=== PATIENT | female | born 1980 | race Two or more races ===

== ENCOUNTER 2019-07-18 14:36 | Inpatient (IN) | payer OTHER ==
[~2019-07-18] VITALS: Ht 167.6 cm; Wt 80.7 kg
[2019-07-18] MEDS ORDERED: PRENATAL TABLE1 EAC1 PO (20:10)
[2019-07-20] MEDS ORDERED: Anaprox DS PO (12:37)
== END 2019-07-20 13:37 | disposition home or self-care (01) | DRG 807 ==
LOC: LDR 14:36 → OB/GYN 14:36 → LDR 14:40 → OB/GYN 07-19 00:46
PROVIDERS: ADMIT Obstetrics & Gynecology
PROC: 10E0XZZ Delivery of Products of Conception, External Approach (ICD-10-PCS; principal; 2019-07-18)
PROC: 0KQM0ZZ Repair Perineum Muscle, Open Approach (ICD-10-PCS; 2019-07-18)
PROC: 4A1HXCZ Monitoring of Products of Conception, Cardiac Rate, External Approach (ICD-10-PCS; 2019-07-18)
PROC: 4A033R1 Measurement of Arterial Saturation, Peripheral, Percutaneous Approach (ICD-10-PCS; 2019-07-18)
DX: O70.1 Second degree perineal laceration during delivery (principal); O76 Abnormality in fetal heart rate and rhythm complicating labor and delivery; Z37.0 Single live birth; Z3A.38 38 weeks gestation of pregnancy; Z22.330 Carrier of Group B streptococcus